=== PATIENT | male | born 1985 | race Hispanic/Latino ===

== ENCOUNTER 2021-07-28 21:13 | Emergency (ER) | payer MEDICARE ==
[~2021-07-28] VITALS: Ht 162.6 cm; Wt 81.0 kg
[2021-07-28] MEDS ORDERED: ULTRAM50 M1 PO (22:19)
[2021-07-28] MEDS ORDERED: AMOXICILLIN500 MG PO (22:19)
[2021-07-28 22:47] VITALS: BP 128/67
== END 2021-07-28 22:52 | disposition home or self-care (01) ==
LOC: ED 21:13
DX: K04.7 Periapical abscess without sinus (principal); Z86.16 Personal history of COVID-19

== ENCOUNTER 2022-09-10 16:32 | Emergency (ER) | payer MEDICARE ==
[~2022-09-10] VITALS: Ht 162.6 cm; Wt 90.9 kg
[~2022-09-10 16:32] MED LIST: AMOXICILLIN500 MG PO; ULTRAM50 M1 PO
[2022-09-10 18:40] VITALS: BP 130/86
== END 2022-09-10 18:40 | disposition home or self-care (01) ==
LOC: ED 16:32
PROC: 2W3JX1Z Immobilization of Right Finger using Splint (ICD-10-PCS; principal; 2022-09-10)
DX: M79.644 Pain in right finger(s) (principal); Z86.16 Personal history of COVID-19

== ENCOUNTER 2024-10-04 21:20 | Emergency (ER) | payer MEDICARE, MEDICAID ==
[~2024-10-04] VITALS: Ht 162.6 cm; Wt 89.0 kg
[2024-10-04 21:46] VITALS: BP 145/91
[2024-10-04] MEDS ORDERED: cefTRIAXone SODIUM 2 GM in SODIUM CHLORIDE 0.9% 100 ML IV ONE (23:00)
[2024-10-04] MEDS ORDERED: MORPHINE SULFATE 4 MG/ML VIAL IV ONE (23:00)
[2024-10-04] MEDS ORDERED: SODIUM CHLORIDE 0.9% 1,000 ML IV ONE ×2 (23:00)
[2024-10-04] MEDS ORDERED: ONDANSETRON HCl 4 MG/2 ML SDV IV ONE (23:00)
[2024-10-04] MEDS ORDERED: CELEBREX200 MG PO (23:02)
[2024-10-04] MEDS ORDERED: PENICILLIN V P500 MG PO (23:02)
[2024-10-04] MEDS ORDERED: ACETAMINOPHEN 500 MG TAB PO ONE (23:05)
[2024-10-04] MEDS ORDERED: cefTRIAXone SODIUM 2 GM/VIAL SDV IM ONE (23:55)
[2024-10-04] MEDS ORDERED: DEXAMETHASONE 2 MG/TAB TAB PO ONE (23:55)
[2024-10-04] MEDS ORDERED: LIDOcaine HCl 1% (Local Anesth.) 20 ML VIAL IM STA (23:58)
[2024-10-05 00:33] VITALS: BP 83/56
[2024-10-05] MEDS ORDERED: traMADol HCL 50 MG/TAB PO ONE (00:50)
[2024-10-05 01:06] VITALS: BP 154/78
== END 2024-10-05 01:15 | disposition home or self-care (01) ==
LOC: ED 21:20
DX: K04.7 Periapical abscess without sinus (principal); K02.9 Dental caries, unspecified; Z86.16 Personal history of COVID-19
CPT/HCPCS: J0696; J2405

== ENCOUNTER 2024-12-16 13:30 | Emergency (ER) | payer MEDICARE, MEDICAID ==
[~2024-12-16] VITALS: Ht 162.6 cm; Wt 90.7 kg
[~2024-12-16 13:30] MED LIST changes: +CELEBREX200 MG PO; +PENICILLIN V P500 MG PO
[2024-12-16] MEDS ORDERED: AMOXICILLIN500 M2 PO (14:15)
[2024-12-16] MEDS ORDERED: TYLENOL # 31 TA1 PO (14:15)
== END 2024-12-16 14:37 | disposition home or self-care (01) ==
LOC: ED 13:30
DX: K04.7 Periapical abscess without sinus (principal); K02.9 Dental caries, unspecified